=== PATIENT | male | born 1990 ===

== ENCOUNTER 2021-07-12 08:47 | Outpatient (CLI) | payer OTHER | END 2021-07-12 08:49 | disposition home or self-care (01) | LOC: RAD 08:47 | PROVIDERS: ATTEND Orthopaedic Surgery | DX: M25.561 Pain in right knee (principal); M25.571 Pain in right ankle and joints of right foot; M25.572 Pain in left ankle and joints of left foot ==

== ENCOUNTER 2021-07-12 12:07 | Outpatient (CLI) | payer OTHER | END 2021-07-12 12:10 | disposition home or self-care (01) | LOC: RAD 12:07 | PROVIDERS: ATTEND Orthopaedic Surgery | DX: M54.50 Low back pain, unspecified (principal) ==